=== PATIENT | female | born 1990 | race American Indian/Alaskan Native ===

== ENCOUNTER 2021-10-08 09:25 | Emergency (ER) | payer SELFPAY ==
--- NOTE | 2021-10-08 09:34 | EDM.PDOC ---
ED HPI GENERAL MEDICAL PROBLEM - General Chief Complaint: Back Pain or Injury Stated Complaint: FELL / INJURED TAILBONE Time Seen by Provider: 10/08/21 09:30 Source of Information: Reports: Patient, RN, RN Notes Reviewed History Limitations: Reports: No Limitations - History of Present Illness INITIAL COMMENTS - FREE TEXT/NARRATIVE: Pt presents to ER by POV with c/o tailbone and low back pain sustained 2 days ago when she slipped and fell down about 18 steps. Pt claims she did not hit her head, and had no LOC. Denies any other injury. Denies saddle area numbness, loss of bowel or bladder control, radiating pain, or motor weakness. Onset: Sudden Duration: Constant Location: Reports: Other (Buttock) Quality: Reports: Ache, Throbbing Severity: Severe Improves with: Reports: None Worsens with: Reports: Other (Sitting) Context: Reports: Other (Fall) Associated Symptoms: Reports: No Other Symptoms Buttock Pain Score (Numeric/FACES): 10 - Related Data Allergies Allergy/AdvReac Type Severity Reaction Status Date / Time No Known Allergies Allergy Verified 10/08/21 10:46 Home Meds: Home Meds FLUoxetine HCl [Prozac] 40 mg PO DAILY 10/08/21 [History] Past Medical History Musculoskeletal History: Reports: Arthritis Psychiatric History: Reports: Depression Social & Family History - Family History Family Medical History: No Pertinent Family History - Tobacco Use Tobacco Use Status *Q: Current Every Day Tobacco User Tobacco Use Within Last Twelve Months: Cigarettes ED ROS GENERAL - Review of Systems Review Of Systems: Comprehensive ROS is negative, except as noted in HPI. ED EXAM,LOWER BACK PAIN/INJURY - Physical Exam Exam: See Below Exam Limited By: No Limitations General Appearance: Alert, WD/WN, No Apparent Distress, Obese Eye Exam: Bilateral Eye: Normal Inspection Nose: Normal Inspection Throat/Mouth: Normal Inspection Head: Atraumatic, Normocephalic Neck: Normal Inspection, Non-Tender, Full Range of Motion Respiratory/Chest: No Respiratory Distress Cardiovascular: Normal Peripheral Pulses GI/Abdominal: Normal Bowel Sounds, Soft, Non-Tender, Pelvis Stable. No: Guarding, Rigid, Rebound (Female) Exam: Deferred Rectal (Female) Exam: Deferred Back Exam: Full Range of Motion, Other (Tender at distal sacrum/coccyx, no visible bruising, swelling, redness, or deformity.). No: CVA Tenderness (L), CVA Tenderness (R), Vertebral Tenderness Extremities: Normal Inspection, Normal Range of Motion, Normal Capillary Refill Neurological: Alert, Normal Gait, No Motor/Sensory Deficits Psychiatric: Normal Mood Skin Exam: Warm, Dry, Intact Course - Vital Signs Last Recorded V/S: Last Vital Signs Temp 98.1 F 10/08/21 09:31 Pulse 84 10/08/21 09:31 Resp 16 10/08/21 09:31 BP 118/72 10/08/21 09:31 Pulse Ox 99 10/08/21 09:31 - Orders/Labs/Meds Labs: Laboratory Tests 10/08/21 Range/Units 09:30 Urine HCG, Qual Negative Meds: Medications Discontinued Medications Generic Name Dose Route Start Last Admin Trade Name Terry PRN Reason Stop Dose Admin Lidocaine HCl 30 gm 10/08/21 10:44 Lidocaine 5% Oint 35.44 Gm Tube TOP 10/08/21 10:45 ONETIME ONE - Radiology Interpretation Free Text/Narrative:: XR Sacrum/Coccyx: distal segment bent but not fractured, see Rad. report. XR L-spine: chronic findings as reported, no acute fracture per Rad. report. Departure - Departure Time of Disposition: 10:47 Disposition: Home, Self-Care 01 Condition: Good Clinical Impression: Closed dislocation, coccyx Qualifiers: Encounter type: initial encounter Qualified Code(s): S33.2XXA - Dislocation of sacroiliac and sacrococcygeal joint, initial encounter - Discharge Information *PRESCRIPTION DRUG MONITORING PROGRAM REVIEWED*: Not Applicable *COPY OF PRESCRIPTION DRUG MONITORING REPORT IN PATIENT CRISTINE: Not Applicable Instructions: Tailbone Injury Forms: ED Department Discharge Additional Instructions: Rx: Naprosyn 500mg, take with food. Rx: Cyclobenzaprine 10mg, Do not drive while under the influence of this medication. Use Lidocaine Ointment 5% to area of tailbone pain every 4 to 6 hours as needed. Ice pack to area of pain. Follow up in clinic if not improving as expected. Sepsis Event Note (ED) - Focused Exam Vital Signs: Vital Signs Temp Pulse Resp BP Pulse Ox 10/08/21 09:31 98.1 F 84 16 118/72 99
--- NOTE | 2021-10-08 10:39 | CR ---
EXAMINATION: Lumbar Spine 2 or 3V SEX: Female AGE: 31 years CLINICAL HISTORY: 31-year-old female injured in fall (low back pain). Interpretation: Abnormal. Homogeneous normal bone mineral density for age and gender. *Decreased vertical height anteriorly L2 vertebral body with apparent Schmorl's node defect and marginal spondylosis suggesting old hyperflexion compression fracture. Note: No comparison films immediately available. No fracture/dislocation of the lower thoracic or other lumbar vertebra. No pathologic skeletal lesions. Symmetric spacing normal-appearing SI and hip joints without arthritic degenerative change. No foreign bodies. Lung bases clear. Relative intervertebral disc space narrowing L1-2 and Schmorl's nodes suggesting disc degeneration or herniation. CONCLUSION: Abnormality L2 vertebral body appears to be old. No sign of other fracture or dislocation lumbar spine.
--- NOTE | 2021-10-08 10:43 | CR ---
EXAMINATION: Sacrum Coccyx Min 2V SEX: Female AGE: 31 years CLINICAL HISTORY: 31-year-old female injured in fall (Low back pain). "Old compression fracture L2". Interpretation: Coccygeal segments are deviated posteriorly. No acute fracture. Clinical correlation? Normal sacrum i.e. no fracture or segmental displacement. No foreign bodies. Symmetric spacing normal-appearing SI and hip joints without arthritic degenerative change.
[2021-10-08] MEDS ORDERED: Lidocaine 5% Oint 35.44 GM Tube TOP ONE (10:44)
== END 2021-10-08 10:53 | disposition home or self-care (01) ==
LOC: DL.ED 09:25
DX: S33.2XXA Dislocation of sacroiliac and sacrococcygeal joint, initial encounter (principal); Z72.0 Tobacco use; W10.9XXA Fall (on) (from) unspecified stairs and steps, initial encounter
CPT/HCPCS: 72100; 72220; 81025; 99283; A9270

== ENCOUNTER 2021-10-28 06:10 | Day surgery (SDC) | payer MEDICAID ==
[~2021-10-28 06:10] MED LIST: Midazolam 1 MG/ML 2 ML SDV ONE; fentaNYL 100 MCG/2 ML SDV ONE
[2021-10-28] MEDS ORDERED: fentaNYL 100 MCG/2 ML SDV IV ONE ×7 (06:11→07:18)
[2021-10-28] MEDS ORDERED: Midazolam 1 MG/ML 2 ML SDV IV ONE ×7 (06:11→07:07)
[2021-10-28] MEDS ORDERED: Dextrose 5%-0.45% NaCl 1,000 ML IV SCH (06:45)
--- NOTE | 2021-10-28 08:03 | OR ---
DATE: 10/28/2021 Total colonoscopy, NBI, and multiple pinch biopsies. INSTRUMENT USED: PCF-H190DL Olympus video colonoscope. PREMEDICATIONS: Fentanyl 200 mcg intravenous, Versed 4 mg intravenous. The procedure was done under pulse oximetry, BP recording, and chip drier. INDICATION: The patient with known ulcerative colitis on therapy. Colonoscopic examination is done for verification of mucosal healing as well as for detection of any polypoid lesions and removal, endoscopic hemostasis therapy if needed. Initial rectal exam was unremarkable. Rigid anoscopy showed distal rectal mucosa with some patchy erythema. The colonoscope was passed with ease. Photographs were taken of the rectum, NBI views were obtained. The scope was passed with ease up to the ileocecal area. Photographs were taken of the normal- appearing cecum, identified by appendiceal orifice and thin-lipped ileocecal valve that prevented further advancement of the instrument to visualize the ileum. No bleeding was noted from any of the visualized areas at the commencement of the examination. The bowel preparation was found to be adequate, [place] scale 3 in all the regions, total #9. No stricture. No vascular ectasia. No large isolated ulcerations seen. No polyp or tumor mass identified. Probing the proximal sides of folds and flexures using adequate distention and clearing of the stool material, withdrawal of the scope was made. Pinch biopsies were obtained from the normal-appearing mucosa of the mid transverse colon, mid descending colon, and proximal sigmoid and also from rectosigmoid area and sent for histopathology. No bleeding was noted from any of the visualized areas at the completion of examination. IMPRESSION: Ulcerative colitis. The patient tolerated the procedure well. [facility] /[id number]
--- NOTE | 2021-10-28 09:09 | LETTER ---
10/28/2021 RE: AGA BARFIELD : 1990 Tita Marquez MD [facility], [place] [address] Marquez: Ms. Aga Barfield had colonoscopic examination done this morning and she tolerated the procedure well. I herewith send a copy of the endoscopy note and photographs for your review. Thank you. Sincerely, [facility] /[id number]
== END 2021-10-28 09:22 | disposition home or self-care (01) ==
LOC: DL.ENDO 06:10
PROVIDERS: ATTEND Internal Medicine Gastroenterology
DX: K52.9 Noninfective gastroenteritis and colitis, unspecified (principal); E66.09 Other obesity due to excess calories; F17.210 Nicotine dependence, cigarettes, uncomplicated; Z01.812 Encounter for preprocedural laboratory examination; Z20.822 Contact with and (suspected) exposure to COVID-19; Z68.35 Body mass index [BMI] 35.0-35.9, adult
CPT/HCPCS: 45380; 87635; J2250; J3010; J7042; U0002

== ENCOUNTER 2021-12-05 10:33 | Emergency (ER) | payer MEDICAID ==
[2021-12-05] MEDS ORDERED: Ketorolac 30 MG/ML SDV IM ONE (11:06)
== END 2021-12-05 11:28 | disposition home or self-care (01) ==
LOC: DL.ED 10:33
DX: T70.0XXA Otitic barotrauma, initial encounter (principal); R51.9 Headache, unspecified; Z72.0 Tobacco use
CPT/HCPCS: 96372; 99283; J1885

== ENCOUNTER 2021-12-07 10:23 | Emergency (ER) | payer MEDICAID | END 2021-12-07 11:35 | disposition home or self-care (01) | LOC: DL.ED 10:23 | DX: L03.114 Cellulitis of left upper limb (principal); H65.01 Acute serous otitis media, right ear; J45.909 Unspecified asthma, uncomplicated; Z86.16 Personal history of COVID-19; Z72.0 Tobacco use; Z79.899 Other long term (current) drug therapy | CPT/HCPCS: 99283 ==

== ENCOUNTER 2021-12-13 12:58 | Emergency (ER) | payer MEDICAID ==
[2021-12-13] MEDS ORDERED: Albuterol/Ipratropium 3.0-0.5 MG/3 ML Neb Soln NEB ONE (13:45)
[2021-12-13] MEDS ORDERED: Ondansetron 4 MG Tab.DIS PO ONE (13:45)
[2021-12-13 14:51] LABS: CORONAVIRUS COVID-19 NAA NEGATIVE (NEGATIVE); RESPIRATORY SYNCYTIAL VIR NAA NEGATIVE (NEGATIVE)
== END 2021-12-13 15:19 | disposition home or self-care (01) ==
LOC: DL.ED 12:58
DX: T70.0XXA Otitic barotrauma, initial encounter (principal); R09.82 Postnasal drip; Z20.822 Contact with and (suspected) exposure to COVID-19
CPT/HCPCS: 0241U; 71045; 87081; 87430; 94640; 99284; A9270; J7620-GY

== ENCOUNTER 2022-03-18 13:44 | Emergency (ER) | payer MEDICAID | END 2022-03-18 15:07 | disposition home or self-care (01) | LOC: DL.ED 13:44 | DX: S46.912A Strain of unspecified muscle, fascia and tendon at shoulder and upper arm level, left arm, initial encounter (principal); Z79.84 Long term (current) use of oral hypoglycemic drugs | CPT/HCPCS: 73030-LT; 99283 ==

== ENCOUNTER 2022-05-02 17:40 | Emergency (ER) | payer MEDICAID ==
[2022-05-02] MEDS ORDERED: Diphtheria,Pertussis(Acell),Tetanus Vaccine 0.5 ML Syringe IM ONE (20:26)
[2022-05-02] MEDS ORDERED: Bacitracin Oint 1 GM U/D Packet TOP ONE (20:26)
== END 2022-05-02 20:41 | disposition home or self-care (01) ==
LOC: DL.ED 17:40
DX: S51.851A Open bite of right forearm, initial encounter (principal); Z23 Encounter for immunization; F17.210 Nicotine dependence, cigarettes, uncomplicated; F41.9 Anxiety disorder, unspecified; F32.A Depression, unspecified; Z79.899 Other long term (current) drug therapy; W54.0XXA Bitten by dog, initial encounter
CPT/HCPCS: 73090-RT; 90471; 90715; 99283-25

== ENCOUNTER 2022-07-13 06:38 | Emergency (ER) | payer MEDICAID ==
[2022-07-13 07:06] LABS: AMPHETAMINES,URINE NEGATIVE (NEGATIVE); BARBITURATES,URINE NEGATIVE (NEGATIVE); BENZODIAZEPINE,URINE NEGATIVE (NEGATIVE); MDMA (ECSTASY), URINE NEGATIVE (NEGATIVE); METHADONE,URINE NEGATIVE (NEGATIVE); METHAMPHETAMINES,URINE NEGATIVE (NEGATIVE); OPIATES,URINE NEGATIVE (NEGATIVE); OXYCODONE,URINE NEGATIVE (NEGATIVE); PHENCYCLIDINE,URINE NEGATIVE (NEGATIVE); TCA,URINE NEGATIVE (NEGATIVE)
[2022-07-13] MEDS ORDERED: Ketorolac 30 MG/ML SDV IM ONE (08:26)
== END 2022-07-13 08:50 | disposition home or self-care (01) ==
LOC: DL.ED 06:38
DX: R10.9 Unspecified abdominal pain (principal); R31.29 Other microscopic hematuria; F17.210 Nicotine dependence, cigarettes, uncomplicated; Z86.16 Personal history of COVID-19
CPT/HCPCS: 74176; 80305-QW; 81001; 81025; 96372; 99284; J1885

== ENCOUNTER 2022-08-30 08:29 | Emergency (ER) | payer MEDICAID ==
[2022-08-30] MEDS ORDERED: Amoxicillin 500 MG Cap PO ONE (08:30)
[2022-08-30 09:51] LABS: CORONAVIRUS COVID-19 NAA NEGATIVE (NEGATIVE); RESPIRATORY SYNCYTIAL VIR NAA NEGATIVE (NEGATIVE)
[2022-08-30] MEDS ORDERED: Amoxicillin 500 MG Cap ONE (09:56)
[2022-08-30] MEDS ORDERED: Albuterol 6.7 GM Inhaler INH ONE (09:57)
== END 2022-08-30 10:13 | disposition home or self-care (01) ==
LOC: DL.ED 08:29
DX: J45.909 Unspecified asthma, uncomplicated (principal); J02.9 Acute pharyngitis, unspecified; H66.001 Acute suppurative otitis media without spontaneous rupture of ear drum, right ear; Z20.822 Contact with and (suspected) exposure to COVID-19
CPT/HCPCS: 0241U; 87081; 87430; 99283; A9270

== ENCOUNTER 2022-10-04 10:32 | Emergency (ER) | payer MEDICAID ==
[2022-10-04] MEDS ORDERED: Promethazine 25 MG Tab PO ONE (10:33)
[2022-10-04] MEDS ORDERED: Benzonatate 100 MG Cap PO ONE (10:33)
[2022-10-04 11:56] LABS: RESPIRATORY SYNCYTIAL VIR NAA NEGATIVE (NEGATIVE)
[2022-10-04 12:00] LABS: CORONAVIRUS COVID-19 NAA POSITIVE (NEGATIVE)
[2022-10-04] MEDS ORDERED: Promethazine 25 MG Tab ONE (12:07)
[2022-10-04] MEDS ORDERED: Benzonatate 100 MG Cap ONE (12:07)
== END 2022-10-04 12:20 | disposition home or self-care (01) ==
LOC: DL.ED 10:32
DX: U07.1 COVID-19 (principal); J45.909 Unspecified asthma, uncomplicated; M06.9 Rheumatoid arthritis, unspecified; Z79.899 Other long term (current) drug therapy
CPT/HCPCS: 0241U; 87081; 87430; 99284

== ENCOUNTER 2023-08-24 03:48 | Emergency (ER) | payer MEDICAID ==
[2023-08-24] MEDS ORDERED: Albuterol/Ipratropium 3.0-0.5 MG/3 ML Neb Soln NEB ONE (04:05)
[2023-08-24] MEDS ORDERED: methylPREDNISolone Sodium Succinate 125 MG/2 ML SDV IM ONE (04:10)
[2023-08-24] MEDS ORDERED: Codeine/Promethazine 10-6.25 MG/5 ML Syrup 5 ML UD Cup PO ONE (04:31)
[2023-08-24] MEDS ORDERED: Albuterol 6.7 GM Inhaler INH ONE (06:33)
== END 2023-08-24 06:50 | disposition home or self-care (01) ==
LOC: DL.ED 03:48
DX: J45.901 Unspecified asthma with (acute) exacerbation (principal); F17.210 Nicotine dependence, cigarettes, uncomplicated; Z86.16 Personal history of COVID-19; Z79.899 Other long term (current) drug therapy
CPT/HCPCS: 71045; 94640; 96372; 99283; 99284; A9270-GY; J2930; J7620-GY

== ENCOUNTER 2024-05-20 08:53 | Emergency (ER) | payer MEDICAID ==
[2024-05-20] MEDS: cefTRIAXone 1 GM, Lidocaine 1% 2.1 ML IM ONE (09:37)
[2024-05-20] MEDS: Lidocaine 1% 5 ML VIAL ONE (09:39)
== END 2024-05-20 09:47 | disposition home or self-care (01) ==
LOC: DL.ED 08:53
DX: L03.113 Cellulitis of right upper limb (principal); S61.451A Open bite of right hand, initial encounter; F17.200 Nicotine dependence, unspecified, uncomplicated; Z86.16 Personal history of COVID-19; Z79.899 Other long term (current) drug therapy; W55.01XA Bitten by cat, initial encounter
CPT/HCPCS: 96372; 99283; J0696; J3490

== ENCOUNTER 2024-12-03 09:02 | Emergency (ER) | payer SELFPAY | END 2024-12-03 09:24 | disposition home or self-care (01) | LOC: DL.ED 09:02 | DX: B02.9 Zoster without complications (principal); J45.909 Unspecified asthma, uncomplicated; Z79.899 Other long term (current) drug therapy; Z86.16 Personal history of COVID-19 | CPT/HCPCS: 99282 ==